=== PATIENT | female | born 2005 | race Two or more races ===

== ENCOUNTER 2024-10-28 06:53 | Day surgery (SDC) | payer OTHER, SELFPAY ==
[2024-10-26 12:53] VITALS: BMI 18.8
[2024-10-28 07:54] VITALS: BP 119/91; PULSE 80; RESP 16; TEMP 36.3; O2SAT 93
[2024-10-28] MEDS: LACTATED RINGERS 1000ML 1,000 ML 50 ML IV (08:01)
--- NOTE | 2024-10-28 08:09 | P.PNANES_ITS ---
[facility] Disclaimer: The information contained in this section may have been updated after the patient was seen, as this information can be updated by other users. 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 Travel in the last 8 weeks?: None Have you lived/traveled outside US in past 30 days?: No Contact w/someone who lives/traveled outside US past 30 days?: No Exposure to someone with infectious disease in past 14 days?: No Do you have a fever (greater than 100.4 F or 38 C)?: No Have you tested positive for COVID-19?: No Exposed to someone with COVID-19 in past 14 days?: No Do you have a sore throat?: No Do you have a cough?: No Do you have any weakness?: No Are you experiencing any nausea/vomitting?: No Do you have any diarrhea?: No Are you experiencing any unusual bleeding?: No Do you have any muscle aches/pain?: No Do you have any abdominal pain?: No Are you experiencing loss of taste or smell?: No [facility] Anesthesia Checklist Patient Identification Patient Identification: Arm Band and Family Structural Data Admitted From: Home Planned Operative Procedure/s: EGD. Consent for Planned Operative Procedure(s) Verified: Yes Verified Documents: Surgical Consent and History and Physical NPO Status Verified Time NPO: 00:00 Additional verifications Patient : No Anesthesia Reactions: No Hx Blood Transfusions: No Blood Transfusion Reaction: No Cephalosporin Allergy: No Previous Colonoscopy: No Airway Assessment Mallampati Score:: Class II C-Spine Mobility Assessed: Yes TMJ Mobility Assessed: Yes Dentition: Good Dentition Neurological Assessment Level of Consciousness: Awake, Alert, Appropriate and Follows Commands Hx Seizures: No Numbness or tingling in extremities: No Anesthesia Plan Anesthesia Risk discussed: Yes ASA Class: II Anesthesia Type: MAC Preoperative Comments Pre-Operative Comments: Transient asthma with rx albuterol. Acid reflux. Loss of appetite Nausea.
[2024-10-28 08:10] LABS: Urine Pregnancy, HCG Qual. Negative (Negative)
--- NOTE | 2024-10-28 08:46 | P.HP_ITS ---
History of Present Illness *Admission Date: 10/28/24 *Reason for visit:: Nausea/abdominal pain/loose stools *History of present illness: Mrs. Blanton who is here for diagnostic EGD due to nausea, loss of appetite, reflux, bloating and abdominal cramps. She also has urgency and diarrhea. The examination is deemed medically necessary for diagnostic EGD. The patient has been seen, interviewed and examined prior to the procedure by both myself and the anesthesia provider. [facility] Disclaimer: The information contained in this section may have been updated after the patient was seen, as this information can be updated by other users. 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 student Travel in the last 8 weeks?: None Have you lived/traveled outside US in past 30 days?: No Contact w/someone who lives/traveled outside US past 30 days?: No Exposure to someone with infectious disease in past 14 days?: No Do you have a fever (greater than 100.4 F or 38 C)?: No Have you tested positive for COVID-19?: No Exposed to someone with COVID-19 in past 14 days?: No Do you have a sore throat?: No Do you have a cough?: No Do you have any weakness?: No Are you experiencing any nausea/vomitting?: No Do you have any diarrhea?: No Are you experiencing any unusual bleeding?: No Do you have any muscle aches/pain?: No Do you have any abdominal pain?: No Are you experiencing loss of taste or smell?: No Review of Systems Review of Systems Review of systems (narrative): Negative *Cardiovascular Comments: Negative *Gastrointestinal Comments: Negative *Genitourinary Comments: Negative *Musculoskeletal Comments: Negative *Neurologic Comments: Negative Meds Home Medications and Allergies Home Medications ?Medication ?Instructions ?Recorded ?Confirmed ?Type cholecalciferol (vitamin D3) 1,250 1,250 mcg PO WEEKLY 08/03/24 10/28/24 History mcg (50,000 unit) capsule cyanocobalamin (vitamin B-12) 5,000 mcg sublingual DONTAE LY 10/26/24 10/28/24 History 5,000 mcg sublingual tablet (Vitamin B-12) New Prescriptions to Start Prescriptions: Allergies Allergy/AdvReac Type Severity Reaction Status Date / Time No Known Allergies Allergy Verified 10/28/24 07:53 Exam Data for Last 24 hours Vital signs and Labs for Last 24 Hours: Temp Pulse Resp BP Pulse Ox O2 Del Method 97.4 F L 80 16 119/91 H 93 L Room Air 10/28/24 07:54 10/28/24 07:54 10/28/24 07:54 10/28/24 07:54 10/28/24 07:54 10/28/24 07:54 Laboratory Results - last 24 hr 10/28/24 07:52: Urine HCG, Qual Negative I & O for Last 24 hours: Intake & Output 10/25/24 10/26/24 10/27/24 10/28/24 23:59 23:59 23:59 23:59 Weight 110 lb *Routine HEENT Exam Head: Present normocephalic Eye: Present EOMI and PERRL ENT: Present mucous membranes moist *Routine Neck Exam Neck: Present supple *Routine Respiratory Exam Respiratory: Present CTA bilaterally *Routine Cardiovascular Exam Cardiovascular: Present RRR *Routine Abdominal Exam Abdominal: Present soft and normoactive bowel sounds; Absent tenderness *Routine Rectal Exam Rectal:: deferred *Routine Genitalia Exam Genitalia:: deferred *Routine Extremities Exam Extremities: Absent cyanosis, clubbing or edema *Routine Skin Exam Skin: Present warm; Absent rash *Routine Neurological Exam Neurological: Present alert and oriented X3 Assessment and Plan *Assessment and plan (1) Acid reflux: Status: Acute Category: Medical Code(s): K21.9 - Gastro-esophageal reflux disease without esophagitis (2) Bloating: Status: Acute Category: Medical Code(s): R14.0 - Abdominal distension (gaseous) (3) Loss of appetite: Status: Acute Category: Medical Code(s): R63.0 - Anorexia (4) Diarrhea: Status: Acute Category: Medical Code(s): R19.7 - Diarrhea, unspecified (5) Fecal urgency: Status: Acute Category: Medical Code(s): R15.2 - Fecal urgency (6) Nausea and vomiting: Status: Acute Category: Medical Code(s): R11.2 - Nausea with vomiting, unspecified Plan A/P: 1. Nausea/vomiting with loss of appetite, reflux, bloating, cramps and diarrhea is the preprocedural diagnosis. The patient will be anesthetized/sedated using MAC sedation. The patient has been seen and examined. Cardiac and lung assessment prior to the examination is stable. Proceed with planned diagnostic EGD.
--- NOTE | 2024-10-28 09:01 | P.PCN_ITS ---
[facility] Procedure Note Date: 10/28/24 Time: 09:10 Procedure Note:: Upper Endoscopy Procedure Report: Esophagogastroduodenoscopy with cold biopsies Endoscopost: Daniel Grijalva II, MD Referring Physician: MOISES Esteban Date of Procedure: October 28, 2024 Equipment: Olympus GIF 190 standard upper endoscope Sedation: MAC sedation Indications: Mrs. Blanton is a 19-year-old female who is here for diagnostic evaluation of her nausea, vomiting, lack of appetite and weight loss. She has bloating, early satiety and some lower abdominal discomfort. She has had moderate belching. The patient also has had diarrhea. All of this began after cholecystectomy in November 2023. The patient reports no dysphagia or significant abdominal pain. Her mother has gluten intolerance but not celiac disease. She reports no prior endoscopy or colonoscopy. Procedure: Prior to the procedure, a history and physical exam was performed, and patient's medications and allergies were reviewed. The risks, benefits and alternatives of the sedation and procedure were discussed with the patient. All questions were answered and informed consent was obtained. The patient was brought to the procedure room. Patient identification and proposed procedure were verified by the physician and the nurse. The patient was placed in a left lateral decubitus position and the scope was passed under direct vision. Throughout the procedure, the patient's blood pressure, pulse, and oxygen saturations were monitored continuously. The upper GI endoscopy was accomplished without difficulty. The patient tolerated the procedure well. Findings: The scope was passed directly into the upper esophagus and advanced to the fourth portion of duodenum and proximal jejunum. A cold biopsy was taken from the proximal jejunum for disaccharidase assay. The proximal jejunum, post bulbar duodenum, ampulla and duodenal bulb were normal with normal mucosa and conniventes. Cold biopsies were taken from the first portion of duodenum and duodenal bulb for celiac disease. The scope was withdrawn through a normal duodenal bulb and pylorus into the stomach. There was bile reflux with minimal antral linear reactive gastropathy. Biopsies were taken at the incisura. Upon retroflexion there was a small 1 to 2 cm hiatal hernia/sliding hiatal hernia. The scope was then withdrawn into the esophagus. There were 2 tongues of salmon-colored mucosa that were biopsied to rule out intestinal metaplasia. There was no evidence of reflux esophagitis. The remainder of the esophageal mucosa was normal. Impression: 1. Nonerosive GERD with 2 tongues of salmon-colored mucosa?biopsies taken to rule out intestinal metaplasia/Bolanos's esophagus and very small 1 to 2 cm sliding hiatal hernia 2. Bile reflux with mild antral reactive gastropathy Plan: I will follow-up the biopsies and disaccharidase assay. I would recommend more aggressive treatment of her nausea and vomiting with metoclopramide. We will also discuss treatment for her diarrhea and I would like to obtain stool studies today as well with calprotectin, elastase, lactoferrin, Hemoccult and additional labs to include CBC, CMP, amylase, lipase etc.
[2024-10-28 09:18] VITALS: BP 100/60; PULSE 77; RESP 18; TEMP 37.1; O2SAT 99
[2024-10-28 09:28] VITALS: BP 104/69; PULSE 65; RESP 18; O2SAT 100
[2024-10-28 09:38] VITALS: BP 110/71; PULSE 64; RESP 18; O2SAT 100
[2024-10-28 09:38] LABS: Basophils # 0.1 K/mm3 (0-0.2); Basophils % 0.8 % (0.1-2.0); Eosinophils # 0.1 Kmm3 (0.0-0.4); Eosinophils % 1.7 % (0.1-12.0); Hematocrit 32.4 % (37.0-47.0); Hemoglobin 9.9 g/dL (12.2-16.2); Immature Granulocytes # 0.02 10^3uL; Immature Granulocytes % 0.3 %; Lymphocytes # 1.1 K/mm3 (0.7-4.5); Lymphocytes % 16.7 % (10-50); Mean Corpuscular HGB Conc 30.6 g/dL (31.8-35.4); Mean Corpuscular Hemoglobin 24.7 pg (27.0-31.2); Mean Corpuscular Volume 80.8 fl (81-99); Monocytes # 0.5 K/mm3 (0.1-1.0); Monocytes % 7.1 % (1.7-9.3); Neutrophils # 4.9 K/mm3 (1.8-7.8); Neutrophils % 73.4 % (37.0-80.0); Nucleated Red Blood Cells # 0 10^3/uL; Nucleated Red Blood Cells % 0 %; Platelet Count 316 K/mm3 (142-424); Red Blood Count 4.01 M/mm3 (4.20-5.40); Red Cell Distribution Width 16.9 % (11.5-17.5); White Blood Count 6.7 K/mm3 (4.5-13.0)
[2024-10-28 09:48] VITALS: BP 112/84; PULSE 68; RESP 18; TEMP 37.1; O2SAT 99
[2024-10-28 09:54] LABS: Albumin Level 3.8 g/dl (3.5-5.0); Chloride 110 mmol/L (98-107); Potassium 4.2 mmoL/L (3.5-5.1); Sodium 139 mmol/L (136-145)
[2024-10-28 09:56] LABS: Amylase 59 U/L (30-110); Blood Urea Nitrogen 10 mg/dl (7-17); Creatinine Clearance Estimated 101 mL/min (50-200); Estimated Glomerular Filt Rate 107 ml/min (>60); GFR (African American) 129 ML/MIN (>60)
[2024-10-28 09:57] LABS: Alanine Aminotransferase 10 U/L (12-78); Albumin/Globulin Ratio 1.7 (1.1-1.8); Alkaline Phosphatase 55 U/L (38-126); Anion Gap 7.2 mEq/L (5-15); Aspartate Amino Transferase 17 U/L (14-36); Bilirubin,Total 0.2 mg/dl (0.2-1.3); Calcium 8.6 mg/dl (8.4-10.2); Carbon Dioxide 26 mmol/L (22.0-30.0); Globulin 2.2 g/dL (1.3-3.2); Glucose 96 mg/dl (74-100); Iron 30 ug/dL (37-170); Lipase 221 U/L (23-300)
[2024-10-28 10:07] LABS: Total Iron Binding Capacity 408 ug/dL (265-497)
[2024-10-28 10:31] LABS: Ferritin 5.24 ng/ml (6.24-137)
[2024-11-02 16:12] LABS: Disclaimer Notes (.); Interpretation Notes (.); Lactase 15.1 (>/= 14.0); Maltase 186.25 (>/= 110.0); Palatinase 12.08 (>/= 8.5); Reference Notes (.); Sucrase 45.3 (>/= 25.0)
== END 2024-10-28 09:59 | disposition home or self-care (01) ==
PROVIDERS: PCP Nurse Practitioner Family; Visit Provider Internal Medicine Gastroenterology
PROC: 0DJ08ZZ Inspection of Upper Intestinal Tract, Via Natural or Artificial Opening Endoscopic (ICD-10-PCS; CPT 43239; principal; 2024-10-28 08:30)
DX: K21.9 Gastro-esophageal reflux disease without esophagitis (principal); K31.9 Disease of stomach and duodenum, unspecified
CPT/HCPCS: 43239; 80053; 81025; 82150; 82657; 82728; 83540; 83550; 83690; 85025; 88305; J2003; J2704; J7120

== ENCOUNTER 2024-12-06 13:46 | Day surgery (SDC) | payer OTHER, SELFPAY ==
[2024-12-03 13:44] VITALS: BMI 18.8
--- NOTE | 2024-12-06 12:13 | P.HP_ITS ---
History of Present Illness *Admission Date: 12/06/24 *Reason for visit:: Iron deficiency, nausea/vomiting, bloating, lower abdominal pain, diarrhea *History of present illness: Ms. Blanton is a 19-year-old female who is here for diagnostic colonoscopy secondary to iron deficiency anemia with lower abdominal pain, fullness, bloating and diarrhea. The examination is deemed medically necessary for diagnostic colonoscopy. The patient has been seen, interviewed and examined prior to the procedure by both myself and the anesthesia provider. [facility] Disclaimer: The information contained in this section may have been updated after the patient was seen, as this information can be updated by other users. 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: employed and student Travel in the last 8 weeks?: None Have you lived/traveled outside US in past 30 days?: No Contact w/someone who lives/traveled outside US past 30 days?: No Exposure to someone with infectious disease in past 14 days?: No Do you have a fever (greater than 100.4 F or 38 C)?: No Have you tested positive for COVID-19?: No Exposed to someone with COVID-19 in past 14 days?: No Do you have a sore throat?: No Do you have a cough?: No Do you have any weakness?: No Do you have any diarrhea?: No Are you experiencing any unusual bleeding?: No Do you have any muscle aches/pain?: No Do you have any abdominal pain?: No Are you experiencing loss of taste or smell?: No Review of Systems Review of Systems Review of systems (narrative): Negative *Cardiovascular Comments: Negative *Gastrointestinal Comments: Negative *Genitourinary Comments: Negative *Musculoskeletal Comments: Negative *Neurologic Comments: Negative Meds Home Medications and Allergies Home Medications ?Medication ?Instructions ?Recorded ?Confirmed ?Type cholecalciferol (vitamin D3) 1,250 1,250 mcg PO WEEKLY 08/03/24 12/06/24 History mcg (50,000 unit) capsule cyanocobalamin (vitamin B-12) 5,000 mcg sublingual DONTAE LY 10/26/24 12/06/24 History 5,000 mcg sublingual tablet (Vitamin B-12) metoclopramide HCl 5 mg tablet 5 mg PO DAILY #120 tabs 10/28/24 12/06/24 Rx [id number] 140 gram-sod sulfate 9 500 ml PO .COMPLEX colo nscopy #3 ea 11/23/24 12/06/24 Rx gram-NaCl 5.2gram-KCl-C oral pwdr packs (Plenvu) rifaximin 550 mg tablet (Xifaxan) 550 mg PO TID 14 day s #42 tabs 12/02/24 12/06/24 Rx New Prescriptions to Start Prescriptions: Allergies Allergy/AdvReac Type Severity Reaction Status Date / Time No Known Allergies Allergy Verified 12/06/24 14:09 Exam Data for Last 24 hours I & O for Last 24 hours: Intake & Output 12/03/24 12/04/24 12/05/24 12/06/24 23:59 23:59 23:59 23:59 Weight 110 lb *Routine HEENT Exam Head: Present normocephalic Eye: Present EOMI and PERRL ENT: Present mucous membranes moist *Routine Neck Exam Neck: Present supple *Routine Respiratory Exam Respiratory: Present CTA bilaterally *Routine Cardiovascular Exam Cardiovascular: Present RRR *Routine Abdominal Exam Abdominal: Present soft and normoactive bowel sounds; Absent tenderness *Routine Rectal Exam Rectal:: deferred *Routine Genitalia Exam Genitalia:: deferred *Routine Extremities Exam Extremities: Absent cyanosis, clubbing or edema *Routine Skin Exam Skin: Present warm; Absent rash *Routine Neurological Exam Neurological: Present alert and oriented X3 Assessment and Plan *Assessment and plan (1) Lower abdominal pain: Status: Acute Category: Medical Code(s): R10.30 - Lower abdominal pain, unspecified (2) Bloating: Status: Acute Category: Medical Code(s): R14.0 - Abdominal distension (gaseous) (3) Iron deficiency anemia: Status: Acute Category: Medical Code(s): D50.9 - Iron deficiency anemia, unspecified (4) Diarrhea: Status: Acute Category: Medical Code(s): R19.7 - Diarrhea, unspecified Plan A/P: 1. Lower abdominal pain, diarrhea, iron deficiency anemia and bloating is the preprocedural diagnosis. The patient will be anesthetized/sedated using MAC sedation. The patient has been seen and examined. Cardiac and lung assessment prior to the examination is stable. Proceed with planned diagnostic colonoscopy.
[2024-12-06 14:09] LABS: Urine Pregnancy, HCG Qual. Negative (Negative)
[2024-12-06 14:12] VITALS: BP 111/65; PULSE 94; RESP 18; TEMP 36.5; O2SAT 96
[2024-12-06] MEDS: LACTATED RINGERS 1000ML 1,000 ML 50 ML IV (14:21)
--- NOTE | 2024-12-06 14:35 | P.PNANES_ITS ---
[facility] Disclaimer: The information contained in this section may have been updated after the patient was seen, as this information can be updated by other users. 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 student Travel in the last 8 weeks?: None Have you lived/traveled outside US in past 30 days?: No Contact w/someone who lives/traveled outside US past 30 days?: No Exposure to someone with infectious disease in past 14 days?: No Do you have a fever (greater than 100.4 F or 38 C)?: No Have you tested positive for COVID-19?: No Exposed to someone with COVID-19 in past 14 days?: No Do you have a sore throat?: No Do you have a cough?: No Do you have any weakness?: No Do you have any diarrhea?: No Are you experiencing any unusual bleeding?: No Do you have any muscle aches/pain?: No Do you have any abdominal pain?: No Are you experiencing loss of taste or smell?: No [facility] Anesthesia Checklist Patient Identification Patient Identification: Arm Band and Family Structural Data Admitted From: Home Planned Operative Procedure/s: Colonoscopy Consent for Planned Operative Procedure(s) Verified: Yes Verified Documents: Surgical Consent NPO Status Verified Time NPO: 00:00 Additional verifications Patient : No Anesthesia Reactions: No Hx Blood Transfusions: No Blood Transfusion Reaction: No Cephalosporin Allergy: No Previous Colonoscopy: No Airway Assessment Mallampati Score:: Class II C-Spine Mobility Assessed: Yes TMJ Mobility Assessed: Yes Dentition: Good Dentition Neurological Assessment Level of Consciousness: Awake, Alert, Appropriate and Follows Commands Hx Seizures: No Numbness or tingling in extremities: No Anesthesia Plan Anesthesia Risk discussed: Yes ASA Class: I Anesthesia Type: MAC
--- NOTE | 2024-12-06 16:09 | P.PCN_ITS ---
[facility] Procedure Note Date: 12/06/24 Time: 16:27 Procedure Note:: Colonoscopy Procedure Report: Colonoscopy with cold biopsies Endoscopist: Daniel Grijalva II, MD Referring physician: MOISES Esteban Date of Procedure: December 06, 2024 Equipment: Olympus [id number] adult colonoscope Sedation: MAC sedation Indication: Ms. Blanton is a 19-year-old female who reports lower abdominal pain discomfort, bloating and nausea. She also has had diarrhea which all began after cholecystectomy in November 2023. Lab work has shown microcytic anemia (hemoglobin 9.9 and hematocrit 32.4) and iron levels were low with serum iron 30, iron saturation 7.35% and serum ferritin 5.24. The patient has had loss of appetite and weight loss. Her colonoscopy had shown some bile reflux with mild antral gastropathy and very small sliding hiatal hernia. Biopsies of the esophagus and stomach showed no evidence of Bolanos's esophagus or H. pylori. Colonoscopy is performed for diagnostic purposes. Procedure: Prior to the procedure, a history and physical exam was performed, and patient's medications and allergies were reviewed. The risks, benefits and alternatives of the sedation and procedure were discussed with the patient. All questions were answered and informed consent was obtained. The patient was brought to the procedure room. Patient identification and proposed procedure were verified by the physician and the nurse. The patient was placed in a left lateral decubitus position and the scope was passed under direct vision. Throughout the procedure, the patient's blood pressure, pulse, and oxygen saturations were monitored continuously. The colonoscopy was accomplished without difficulty. The patient tolerated the procedure well. Findings: On digital rectal examination there was normal rectal tone. There were no external hemorrhoids. The colonoscope was introduced through the anal canal to the rectum and advanced to the cecum. The ileocecal valve and appendiceal orifice were identified. The scope was advanced a short distance into the ileum which appeared grossly normal. The scope was then withdrawn into the colon. The cecum, ascending, transverse, descending, sigmoid and rectum were grossly normal. Cold biopsies were taken randomly from the right colon to rule out mi croscopic colitis. There were no mucosal abnormalities identified. There was some colonic redundancy/tortuosity. Upon retroflexion within the rectum there were no internal hemorrhoids. The preparation was excellent throughout with [place] Preparation Score of 9. The cecal time was 12 minutes. Impression: 1. Normal colonoscopy with intubation of the terminal ileum Plan: I do suspect that the patient is related to heavier menstruation. I will follow-up the biopsies to rule out microscopic colitis. I do feel the patient may have SIBO and/or colonic bacterial overgrowth syndrome. We will discuss treatment options including low FODMAP diet.
[2024-12-06 16:30] VITALS: BP 95/52; PULSE 86; RESP 17; TEMP 36.1; O2SAT 95
[2024-12-06 16:40] VITALS: BP 110/57; PULSE 79; RESP 17; O2SAT 97
[2024-12-06 16:50] VITALS: BP 91/68; PULSE 79; RESP 18; O2SAT 97
[2024-12-06 17:00] VITALS: BP 95/70; PULSE 78; RESP 18; O2SAT 98
== END 2024-12-06 17:05 | disposition home or self-care (01) ==
PROVIDERS: PCP Nurse Practitioner Family; Visit Provider Internal Medicine Gastroenterology
PROC: 0DJD8ZZ Inspection of Lower Intestinal Tract, Via Natural or Artificial Opening Endoscopic (ICD-10-PCS; CPT 45378; principal; 2024-12-06 15:00)
DX: R10.30 Lower abdominal pain, unspecified (principal); R14.0 Abdominal distension (gaseous); R11.0 Nausea; R19.7 Diarrhea, unspecified
CPT/HCPCS: 45380; 81025; J2003; J2704; J7120

== ENCOUNTER 2025-02-23 10:40 | Outpatient (CLI) | payer OTHER, SELFPAY ==
--- OUTSIDE RECORDS SUMMARY | 2006-12-08 | XMS_ITS | Encounter Summary ---
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 Name Role Phone Unavailable Primary Care Provider Unavailabl e Encounter Details Date Type Department Care Team (Late st Contact Info) Description 12/08/2006 Hospital Encounter [facility] Department of Radiology [address] [place] [phone] Social History Tobacco Use Types Packs/Day Years Used Date Smoking Tobacco: Never Assessed Comments Unknown Sex and Gender Information Value Date Recorded Sex Assigned at Not on file Legal Sex Female 5:20 AM EST Gender Identity Not on file Sexual Orientation Not on file documented as of this encounter Miscellaneous Notes * Consent Other - Edt, Audit [place] - 11/20/2007 6:41 AM EDT documented in this encounter Plan of Treatment Not on file documented as of this encounter Procedures Procedure Name Priority Date/Time Associated Diagnosis Comments RAD CHEST 2V Routine 12/08/2006 8:52 AM EDT documented in this encounter Results * RAD CHEST (2V) (12/08/2006 8:52 AM EDT) Anatomical Region Laterality Modality RAD CHEST/ABD/THORAX Computed Ra diography 12/08/2006 8:47 AM EDT Narrative 12/08/2006 8:52 AM EDT Final Report Clinical history of tetralogy of Fallot at . Impression lung is clear and heart now normal Interpreted By: FIORDALIZA CERVANTES M.D. Verified By: FIORDALIZA CERVANTES M.D. on 12/08/2006 09:18 via Electronic Signature The attending radiologist has reviewed the images and agrees with this report. us Briana Chavarria MD DIAGNOSTIC IMAGING ORDERABLE S Final Result documented in this encounter Visit Diagnoses Not on filedocumented in this encounter
--- OUTSIDE RECORDS SUMMARY | 2006-12-08 | XMS_ITS | Encounter Summary ---
Author Organization [facility] Address [facility] [place] [address] Care Team Providers Care Building Operator Name Role Phone Unavailable Primary Care Provider Unavailabl e Encounter Details Date Type Department Care Team (Late st Contact Info) Description 12/08/2006 Hospital Encounter [facility] Division of Anesthesiology [address] [place] [phone] Social History Tobacco Use Types Packs/Day Years Used Date Smoking Tobacco: Never Assessed Comments Unknown Sex and Gender Information Value Date Recorded Sex Assigned at Not on file Legal Sex Female 5:20 AM EST Gender Identity Not on file Sexual Orientation Not on file documented as of this encounter Plan of Treatment Not on file documented as of this encounter Visit Diagnoses Not on filedocumented in this encounter
--- OUTSIDE RECORDS SUMMARY | 2025-01-03 10:30 | XMS_ITS | Encounter Summary ---
[facility] Address [address] [place] [address] Care Team Providers Care Finisher Operator Name Role Phone Cherelle Hampton APRN Primary Care Provider Reason for Visit * Reason Comments Breast Mass Encounter Details Date Type Department Care Team (Late st Contact Info) Description 01/03/2025 10:30 AM EDT Office Visit [facility] [address] [place] [address] Cherelle Hampton APRN [address] [place] [address] Mass of lower inner quadrant of right breast (Primary Dx) Social History Tobacco Use Types Packs/Day Years Used Date Smoking Tobacco: Never Smokeless Tobacco: Never Alcohol Use Standard Drinks/Week Comments Never 0 (1 standard drink = 0.6 oz pur e alcohol) PHQ-2 Answer Date Recorded Retired PHQ-9: Brief Depression Severity Measure Score 14 04/09/2023 PHQ-2 Answer Date Recorded Patient Health Questionnaire-9 Score 14 05/28/2024 Comments No Sex and Gender Information Value Date Recorded Sex Assigned at Not on file Legal Sex Female 1:19 PM EDT Gender Identity Not on file Sexual Orientation Not on file Occupation Industry Job Start Date Job End Date Not on file Not on file Not on file Not on file documented as of this encounter Last Filed Vital Signs Vital Sign Reading Time Taken Comments Blood Pressure 92/60 01/03/2025 10:27 AM EDT Pulse 51 01/03/2025 10:27 AM EDT Temperature 36.4 C (97.5 F) 01/03/2025 10:27 AM EDT Respiratory Rate 14 01/03/2025 10:27 AM EDT Oxygen Saturation 100% 01/03/2025 10:27 AM EDT Inhaled Oxygen Concentration - - Weight 49 kg (108 lb) 01/03/2025 10:27 AM EDT Height 162.6 cm (5' 4 ) 01/03/2025 10:27 AM EDT Body Mass Index 18.54 01/03/2025 10:27 AM EDT documented in this encounter Progress Notes * Cherelle Hampton, MUCK HAULER - 01/03/2025 10:30 AM EDT Images from the original note were not included. Date: 01/03/2025 Patient Name: Megan Blanton : 2005 Chief Complaint: Chief Complaint Patient presents with Breast Mass History of Present Illness: Megan Blanton is a 19 y.o. female who is here today to follow upfor Breast Mass History of Present Illness The patient is a 19-year-old female who presents to the clinic with a breast mass of concern. She discovered a spot on her breast a few months ago. Recently, she has been experiencing stabbing pain in the area. She reports no rash, dimpling, or nipple discharge. She has never been . She admits to consuming a significant amount of caffeine. Her menstrual cycles are regular, occurringevery 28 days and lasting between 5 to 7 days. Her last menstrual period started on 12/22/2024. FAMILY HISTORY She reports no family history of breast mass, biopsies, or cancers in the breast. Review of Systems: Review of Systems Genitourinary: Positive for breast lump. I have reviewed the patients family history, social history, past medical history, past surgical history and have updated it as appropriate. Medications: No current outpatient medications on file. Allergies: No Known Allergies PHQ-9 Total Score: Physical Exam: Vital Signs: Vitals: 01/03/25 1027 BP: 92/60 Pulse: 51 Resp: 14 Temp: 97.5 ??F (36.4 ??C) SpO2: 100% Weight: 49 kg (108 lb) Height: 162.6 cm (64 ) Body mass index is 18.54 kg/m??. BMI is within normal parameters. No other follow-up for BMI required. Physical Exam Vitals and nursing note reviewed. Constitutional: Appearance: Normal appearance. HENT: Head: Normocephalic and atraumatic. Cardiovascular: Rate and Rhythm: Normal rate and regular rhythm. Pulmonary: Effort: Pulmonary effort is normal. Breath sounds: Normal breath sounds. Chest: Skin: General: Skin is warm. Neurological: Mental Status: She is alert and oriented to person, place, and time. Assessment/Plan: Diagnoses and all orders for this visit: 1. Mass of lower inner quadrant of right breast (Primary) - US Breast Bilateral Complete; Future Assessment & Plan 1. Breast mass: - The mass is tender to touch, which is generally a better sign compared to hard, non-tender masses. - An ultrasound of the breast will be ordered as an urgent request to expedite the process. The patient will be contacted with the date and time for the ultrasound. Patient or patient software sales representative verbalized consent for the use of Ambient Listening during the visit with Cherelle Hampton APRN for chart documentation. 01/03/2025 10:47 EDT Follow Up: Return if symptoms worsen or fail to improve. Cherelle Ballesteros APRN [facility] documented in this encounter Plan of Treatment Not on file documented as of this encounter Visit Diagnoses Diagnosis Mass of lower inner quadrant of right breast- Primary documented in this encounter Additional Health Concerns Assessment Noted Time PHQ-2 Depression Total Score: 3 04/09/20 23 4:00 PM EST documented as of this encounter Care Teams Finisher Operator Relationship Specialty Start Date End Date Cherelle Hampton APRN [address] [place] [address] PCP - General Nurse Practitioner 10/24/23 documented as of this encounter
--- OUTSIDE RECORDS SUMMARY | 2025-01-07 07:44 | XMS_ITS | Encounter Summary ---
[facility] Address [address] [place] [address] Care Team Providers Care Manager Health Name Role Phone Cherelle Hampton APRN Primary Care Provider Reason for Visit * Diagnostic Imaging (Emergency) - Closed Specialty Diagnoses / Procedures Referred By Leatha mccann Referred To Contact Radiology Diagnoses Mass of lower inner quadrant of right breast Procedures US Breast Right Limited US Breast Bilateral Complete Cherelle Hampton, OLYA [address] [facility] [place] [address] Phone: tel: fax: [facility] [place] [address] [place] [address] Phone: tel: Referral ID Status Reason Start Date Expiration Date Visits Re quested Visits Authorized [id number] Closed 01/03/2025 04/04/2026 1 1 Encounter Details Date Type Department Care Team (Latest Contact Info) Description 01/07/2025 7:44 AM EDT - 01/07/2025 11:59 PM EDT Hospital Encounter [facility] [place] [address] [facility] [address] [place] [address] Cherelle Hampton PEDIATRIC PHYSIATRIST [address] [place] [address] Mass of lower inner quadrant of right breast Discharge Disposition: Home or Self Care Social History Tobacco Use Types Packs/Day Years [...] Procedure Name Priority Date/Time Associated Diagnosis Comments US BREAST RIGHT LIMITED STAT 01/07/2025 8:45 AM EDT Mass of lower inner quadrant of right breast documented in this encounter Results * (ABNORMAL) US Breast Right Limited (01/07/2025 8:45 AM EDT) Anatomical Region Laterality Modality Breast Right Ultrasound 01/07/2025 8:35 AM EDT Impressions 01/07/2025 8:40 AM EDT Indeterminate lobulated mass. ACR BI-RADS CATEGORY: 4, SUSPICIOUS RECOMMENDATION: Ultrasound-guided core needle biopsy is recommended. A letter, in lay terminology, with the results of this exam was given to the patient at the time of the visit. Physician Order Ultrasound Guided Breast Biopsy Diagnosis: Abnormal Mammogram 01/07/2025 8:40 AM by Cindy Rocha MD on Narrative 01/07/2025 8:40 AM EDT DIAGNOSTIC TARGETED RIGHT BREAST ULTRASOUND CLINICAL INDICATION: Palpable lump near 5:00 on the right, patient is a 19-year-old female. TECHNIQUE: Multiple transverse and sagittal images of the right breast were obtained. COMPARISON: No prior FINDINGS: There is a 2.0 x 0.7 x 2.5 cm hypoechoic parallel macrolobulated mass with an imaging appearance that favors a fibroadenoma. Given size, ultrasound-guided core needle biopsy is recommended to establish a benign histology. us Cherelle Hampton APRN IMG US ORDERABLES Final Resu lt documented in this encounter Visit Diagnoses Diagnosis Mass of lower inner quadrant of right breast documented in this encounter Additional Health Concerns Assessment Noted Time PHQ-2 Depression Total Score: 3 04/09/20 23 4:00 PM EST documented as of this encounter Care Teams Manager Health Relationship Specialty Start Date End Date Cherelle Hampton, PEDIATRIC PHYSIATRIST [facility] [address] [place], [place] [id number] PCP - General Nurse Practitioner 10/24/23 documented as of this encounter
--- OUTSIDE RECORDS SUMMARY | 2025-01-28 12:55 | XMS_ITS | Encounter Summary ---
[facility] Address [address] [place] [address] Care Team Providers Care Scale Installer Name Role Phone Cherelle Hampton APRN Primary Care Provider [phone] Reason for Visit * Diagnostic Imaging (Routine) - Closed Specialty Diagnoses / Procedures Referred By Leatha mccann Referred To Contact Radiology Diagnoses Abnormal mammogram Procedures US Guided Breast Biopsy With & Without Device initial US Guided Breast Biopsy With & Without Device initial Cherelle Hampton APRN [address] [place] [address] Phone: tel: fax: [address] [address] Phone: tel: Referral ID Status Reason Start Date Expiration Date Visits Re quested Visits Authorized [id number] Closed 01/07/2025 04/08/2026 1 1 Encounter Details Date Type Department Care Team (Latest Contact Info) Description 01/28/2025 12:55 PM EDT - 01/28/2025 11:59 PM EDT Hospital Encounter [facility] [place] [address] [place] [address] [place] [address] Cherelle Hampton APRN [address] [facility] [place] [address] Abnormal mammogram Discharge Disposition: Home or Self Care Social [...] on file documented as of this encounter Progress Notes * Toña Arvizu RN MSN - 01/28/2025 1:00 PM EDT Alert and oriented. Denies discomfort, no active bleeding, steri-strips not visualized, gauze dressing intact. Cold pack applied to breast over bandage. Questions answered, support given. Verbalizes and demonstrates understanding of post-care instructions, written copy given. documented in this encounter Plan of Treatment Not on file documented as of this encounter Procedures Procedure Name Priority Date/Time Associated Diagnosis Comments US GUIDED BREAST BIOPSY W WO DEVICE INITIAL Routine 01/28/2025 1:52 PM EDT Abnormal mammogram TISSUE PATHOLOGY EXAM Routine 01/28/2025 1:52 PM EDT documented in this encounter Results * Tissue Pathology Exam (01/28/2025 1:52 PM EDT) Case Report Surgical Pathology Report Case: [id number] Authorizing Provider: Cindy Rocha MD Collected: 01/28/2025 01:52 PM Ordering Location: Received: 01/31/2025 06:15 AM [facility] [place] Pathologist: Minesh Navarro MD Specimen: Breast, Right, RIGHT BREAST 4:00 02/01/2025 2:55 PM EDT LABORATORY Clinical Information Abnormal mammogram right breast 4:00 02/01/2025 2:55 PM EDT LABORATORY Final Diagnosis RIGHT BREAST, 4:00, BIOPSIES: Fibroadenoma Negative for atypia or malignancy GJK 02/01/2025 2:55 PM EDT LABORATORY at 1455 EDT Comment This report was sent to the radiologist at [facility] on 02/01/25. 02/01/2025 2:55 PM EDT LABORATORY Gross Description 1. Breast, Right. Received in formalin labeled right breast 4:00 ultrasound biopsy is a 0.8 x 0.8 x 0.2 cm aggregate of yellow-pink fibrofatty breast tissue fragments placed in formalin at 1352 on 01/28/2025, now submitted in block 1A. The cold ischemic time is less than 60 minutes, total time in formalin is greater than 6 and less than 72 hours. HDM 02/01/2025 2:55 PM EDT LABORATORY Microscopic Description The slides are reviewed and demonstrate histopathologic features supporting the above rendered diagnosis. 02/01/2025 2:55 PM EDT LABORATORY Tissue Right breast structure / Unknown Collection / Unknown 01/28/2025 1:52 PM EDT 01/31/2025 6:15 AM EDT Comment:RIGHT BREAST 4:00 us Cindy Rocha MD PATHOLOGY/CYTOLOGY ORDERABLES Fi nal Result LABORATORY
[address] [place] [address], * US Guided Breast Biopsy With & Without Device initial (01/28/2025 1:52 PM EDT) Anatomical Region Laterality Modality Breast N/A Ultrasound Tissue 01/28/2025 4:42 PM EDT Narrative 02/01/2025 7:19 PM EDT 14G [place]-LOADED ULTRASOUND GUIDED CORE BIOPSY HISTORY: Palpable lump at 5:00 on the right which corresponds to a parallel oval hypoechoic mass. PROCEDURE: Written and verbal consent was obtained for ultrasound guided core biopsy of a 2.5 cm right breast mass located 4:00 4 cm from the nipple. Time out was observed to verify the patient's identity and correct location of the breast abnormality. The presence of the lesion was confirmed ultrasound and a lateral approach was chosen. The breast was prepped and draped in the usual sterile fashion and 1% lidocaine with and without epinephrine was utilized for local anesthesia. A small skin incision was made with a scalpel and a 14-gauge needle was introduced into the breast under direct sonographic guidance. The needle was placed adjacent to the mass. A total of 3 core samples were obtained. The specimens were placed in formalin and forwarded to the pathology department. A post biopsy marking clip was placed. Post procedure mammogram was not performed given the patient's age and that the clip was well seen following the procedure. Upon completion of the procedure, compression was applied to the biopsy site until all appreciable bleeding subsided and a sterile dressing was applied. Post biopsy instructions were reviewed with the patient by our clinical breast imaging staff. A written copy of these instructions was also given to the patient. The patient tolerated the procedure well and no immediate complications occurred. SUMMARY: 14-gauge ultrasound guided core biopsy of a 2.5 cm right breast mass located at 4:00. A post biopsy marking clip was placed. Pathology demonstrated fibroadenoma, negative for atypia or malignancy. This is considered concordant with the imaging findings. A 6-month short-term interval targeted ultrasound follow-up is recommended. If the lesion is painful or bothersome, surgical excision can be considered. Further, if the finding were to enlarge, surgical excision would be recommended. Results and recommendations will be communicated to the patient by our breast care nurse. 02/01/2025 7:19 PM by Cindy Rocha MD on Cherelle Hampton APRN [facility] US ORDERABLES Final Resu lt documented in this encounter Visit Diagnoses Diagnosis Abnormal mammogram Abnormal mammogram, unspecified documented in this encounter Administered Medications Inactive Administered Medications - up to 3 most recent administrations Medication Order MAR Action Action Date Dose Rate Site lidocaine (XYLOCAINE) 1 % injection 5 mL 5 mL, Injection, Once, On Fri01/28/25 at 1400, For 1 dose Given 01/28/2025 2:01 PM EDT 1 mL lidocaine 1% - EPINEPHrine 1:270212 (XYLOCAINE W/EPI) 1 %-1:577972 injection 10 mL 10 mL, Injection, Once, On Fri01/28/25 at 1400, For 1 dose Given 01/28/2025 2:02 PM EDT 1 mL documented in this encounter Additional Health Concerns Assessment Noted Time PHQ-2 Depression Total Score: 3 04/09/20 23 4:00 PM EST documented as of this encounter Care Teams Scale Installer Relationship Specialty Start Date End Date Cherelle Hampton APRN [address] [place] [address] PCP - General Nurse Practitioner 10/24/23 documented as of this encounter
--- OUTSIDE RECORDS SUMMARY | 2025-02-23 10:44 | XMS_ITS | Encounter Summary ---
[facility] Address [address] [place] [address] Care Team Providers Care Green Chain Puller Name Role Phone Cherelle Hampton APRN Primary Care Provider Encounter Details Date Type Department Care Team (Late st Contact Info) Description 01/10/2025 Results Follow-Up [facility] [address] [place] [address] Cherelle Hampton APRN [address] [place] [address] Social History Tobacco Use Types Packs/Day Years [...] Diagnoses Not on filedocumented in this encounter Additional Health Concerns Assessment Noted Time PHQ-2 Depression Total Score: 3 04/09/20 23 4:00 PM EST documented as of this encounter Care Teams Green Chain Puller Relationship Specialty Start Date End Date Cherelle Hampton, TEAMCENTER CONSULTANT [address] [place] [address] PCP - General Nurse Practitioner 10/24/23 documented as of this encounter
--- OUTSIDE RECORDS SUMMARY | 2025-02-23 10:44 | XMS_ITS | Encounter Summary ---
[facility] Address [address] [place] [address] Care Team Providers Care Deputy Sheriff/Investigator Name Role Phone Cherelle Hampton APRN Primary Care Provider Encounter Details Date Type Department Care Team (Latest Contact Info) Description 01/03/2025 Travel Social History Tobacco Use Types Packs/Day Years [...] documented as of this encounter Care Teams Deputy Sheriff/Investigator Relationship Specialty Start Date End Date Cherelle Hampton APRN [address] [place] [address] PCP - General Nurse Practitioner 10/24/23 documented as of this encounter
--- OUTSIDE RECORDS SUMMARY | 2025-02-23 10:44 | XMS_ITS | Encounter Summary ---
[facility] Address [address] [place] [address] Care Team Providers Care Nuclear Process Engineer Name Role Phone MemoOtoniel magallonronnie Calderon APRN Primary Care Provider Encounter Details Date Type Department Care Team (Late st Contact Info) Description 02/02/2025 Telephone [facility] [address] [facility] [address] [facility] [address] [place] [address] Toña Arvizu, RN MSN Social History Tobacco Use Types Packs/Day Years [...] as of this encounter Miscellaneous Notes * Telephone Encounter - Toña Arvizu, RN MSN - 02/02/2025 9:21 AM EDT Patient notified of pathology results and recommendation. Verbalizes understanding. Denies discomfort. Denies signs and symptoms of infection. Questions answered, support given, verbalized understanding. Patient transferred to BIS scheduling per request to schedule recommended follow-up. documented in this encounter Plan of Treatment Not on file documented as of this encounter Visit Diagnoses Not on filedocumented in this encounter Additional Health Concerns Assessment Noted Time PHQ-2 Depression Total Score: 3 04/09/20 23 4:00 PM EST documented as of this encounter Care Teams Nuclear Process Engineer Relationship Specialty Start Date End Date Cherelle Hampton, SOFTWARE DEVELOPER MANAGER [address] [place] [address] PCP - General Nurse Practitioner 10/24/23 documented as of this encounter
--- OUTSIDE RECORDS SUMMARY | 2025-02-23 10:44 | XMS_ITS | Encounter Summary ---
[facility] Address [address] [place] [address] Care Team Providers Care Tire Spotter Name Role Phone Gwendolyn Hampton APRN Primary Care Provider [phone] Reason for Referral * Consultation (Routine) - Authorized Specialty Diagnoses / Procedures Referred By Leatha mccann Referred To Contact Gastroenterology Diagnoses Irritable bowel syndrome with diarrhea Procedures NM OFFICE/OUTPATIENT NEW MODERATE MDM 45 MINUTES Gwendolyn Hampton APRN [address] [place] [address] Phone: tel: fax: Daniel Grijalva MD [address] [facility] [address] [place] [address] Phone: tel: fax: Referral ID Status Reason Start Date Expiration Date Visits Requested Visits Authorized [id number] Authorized Specialty Services Required 11/30/2024 03/01/2026 1 1 Encounter Details Date Type Department Care Team (Late Contact Info) Description 11/30/2024 Telephone [facility] [address] [place] [address] Gwendolyn Hampton APRN [address] [place] [address] Social History Tobacco Use Types [...] encounter Miscellaneous Notes * Telephone Encounter - Gwendolyn Hampton APRN - 11/30/2024 12:10 PM EDT THERE IS NO ORDER FOR DIAGNOSTIC COLONOSCOPY, SO I JUST PLACED AND ORDER FOR GI REFERRAL * Telephone Encounter - Shelly Hutchison RegSched Rep - 11/30/2024 11:46 AM EDT GWENDOLYN BLEVINS ARE NEEDING YOU TO PLACE A NEW ORDER FOR DIAGNOSTIC COLONOSCOPY * Telephone Encounter - Liliana Crowley RegSched Rep - 11/30/2024 11:12 AM EDT [facility] Relationship: Other Best call back number: [phone] What is the provider, practice or medical service name[facility] Any additional details: DAQUAN FROM STATES THAT SHE RECEIVED A FAX BUT IT WASN'T WHAT ISNEEDED. DAQUAN STATES THAT THEY ARE NEEDING A REFERRAL THAT STATES THE PATIENT NEEDS THE PROCEDURE,BECAUSE OF . THE CODE IBSD K58.0 documented in this encounter Plan of Treatment Scheduled Referrals Name Type Priority Associated Diagnoses Order Schedule Ambulatory Referral to Gastroenterology Outpatient Referral Routine Irritable bowel syndrome with diarrhea Ordered: 11/30/2024 documented as of this encounter Visit Diagnoses Diagnosis Irritable bowel syndrome with diarrhea- Primary Irritable bowel syndrome documented in this encounter Additional Health Concerns Assessment Noted Time PHQ-2 Depression Total Score: 3 04/09/20 23 4:00 PM EST documented as of this encounter Care Teams Tire Spotter Relationship Specialty Start Date End Date Gwendolyn Hampton APRN [address] [place] [address] PCP - General Nurse Practitioner 10/24/23 documented as of this encounter
--- OUTSIDE RECORDS SUMMARY | 2025-02-23 10:44 | XMS_ITS | Encounter Summary ---
[facility] Address [address] [place] [address] Care Team Providers Care Breastfeeding Educator Name Role Phone Cherelle Hampton APRN Primary Care Provider Encounter Details Date Type Department Care Team (Latest Contact Info) Description 01/07/2025 Travel Social History Tobacco Use Types Packs/Day [...] documented as of this encounter Care Teams Breastfeeding Educator Relationship Specialty Start Date End Date Cherelle Hampton APRN [address] [place] [address] PCP - General Nurse Practitioner 10/24/23 documented as of this encounter
--- OUTSIDE RECORDS SUMMARY | 2025-02-23 10:45 | XMS_ITS | Clinical Summary ---
Author Organization [facility] Address [address] [place] [address] Care Team Providers Care Web Applications Programmer Name Role Phone Memo Cherelle Calderon APRN Primary Care Provider Allergies No known active allergies Medications * This document contains information received from the source organization and may not represent a complete record from that organization. Hospital, Clinic, or Other Facility Administered Medication Ordered Dose Route Frequency Start Date End Date Status lidocaine (XYLOCAINE) 1 % injection 5 mL 5 mL IJ Once 01/28/2025 01/28/2025 Ended lidocaine 1% - EPINEPHrine 1:408655 (XYLOCAINE W/EPI) 1 %-1:269349 injection 10 mL 10 mL IJ Once 01/28/2025 01/28/2025 Ended Active Problems Problem Noted Date Diagnosed Date Abnormal uterine bleeding (AUB) 06/17/2024 Overview (06/17/2024): AUB x 1 episode, on aygestin with decrease in flow but persistent bleeding. U/S- endometrium- 3.5 mm, bilateral ovaries multi follicular with no dominant cyst. We discussed suspicion for PCOS but she does not meet criteria for diagnosis since menses are historically regular. Discussed contraception to control menses if this persists, however, she is not really interested in that. Discussed that we could do it short term (3-6 mos) if aygestin doesn't stop bleeding. Annual physical exam 06/06/2024 Assessment & Plan (06/06/2024 8:16 PM EST): Health maintenance: Continue routine health maintenance including routine dentistry, eye exam, safety seatbelt use, exercise, and proper nutrition. Exercise 3-4 times a week, 30-45 mins a day Increase water intake Monitor for acute illnesses Vitamin D deficiency 07/23/2023 Chronic fatigue 07/23/2023 Anxiety 07/23/2023 Insomnia due to other mental disorder 04/23/2023 Post traumatic stress disorder (PTSD) 02/18/2023 Nightmares associated with c hronic post-traumatic stress disorder 02/18/2023 History of repair of TEF 01/10/2023 Adjustment disorder with mixed anxiety and depre ssed mood 01/10/2023 Assessment & Plan (06/06/2024 8:16 PM EST): Psychological condition is worsening. Continue current treatment regimen. Psychological condition will be reassessed in 3 months. Resolved Problems Problem Noted Date Diagnosed Date Resolved Date Abnormal uterine bleeding (AUB) 06/11/2024 06/11/2024 Encounters Date Type Department Care Team Description 02/02/2025 Telephone [facility] [place] [address] [facility] [address] [place] [address] Toña Arvizu RN MSN 01/28/2025 12:55 PM EDT - 01/28/2025 11:59 PM EDT Hospital Encounter [facility] [place] [address] [facility] [address] [place] [address] Cherelle Hampton, OLYA Abnormal mammogram Discharge Disposition: Home or Self Care 01/28/2025 Travel 01/10/2025 Results Follow-Up [facility] [address] [address] Cherelle Hampton APRN 01/07/2025 7:44 AM EDT - 01/07/2025 11:59 PM EDT Hospital Encounter [facility] [place] [address] [facility] [address] [place] [address] Cherelle Hampton, OLYA Mass of lower inner quadrant of right breast Discharge Disposition: Home or Self Care 01/07/2025 Travel 01/03/2025 10:30 AM EDT Office Visit [facility] [address] [facility] [address] [address] [place] [address] Cherelle Hampton, PROPERTY ACCOUNTANT Mass of lower inner quadrant of right breast (Primary Dx) 01/03/2025 Travel 12/16/2024 Results Follow-Up [facility] [address] [place] [address] Isela Sloan MA 12/14/2024 1:24 PM EDT - 12/14/2024 2:20 PM EDT Hospital Encounter [facility] [address] [place] [address] [place] Shannon MD Acute UTI (Primary Dx); Nausea Discharge Disposition: Home or Self Care 12/14/2024 Travel 11/30/2024 Telephone [facility] [address] [facility] [address] [place] [address] Cherelle Hampton, OLYA from Last 3 Months Immunizations Immunization Administration Dates Next Due Fluzone (or Fluarix & Flulaval for VFC) >6mos Family History Medical History Relation Name Comments Hypertension Father Anxiety disorder Mother Relation Name Status Comments Father Alive Mother Alive Social History Tobacco Use Types Packs/Day Years Used Date Smoking Tobacco: Never Smokeless Tobacco: Never Tobacco Cessation:Counseling Given: Not Answered Alcohol Use Standard Drinks/Week Comments Never 0 [...] file Not on file Not on file Last Filed Vital Signs Vital Sign Reading [...] Mass Index 18.54 01/03/2025 10:27 AM EDT Plan of Treatment Health Maintenance Due Date Last Done Comments HPV VACCINES (1 - 3-dose series) 10/11/2019 MENINGOCOCCAL B VACCINE (1 of 2 - Standard) 2020 TDAP/TD VACCINES (1 - Tdap) 10/11/2023 INFLUENZA VACCINE 12/10/2024 02/25/2023 ANNUAL PHYSICAL 05/28/2025 05/28/2024 CHLAMYDIA SCREENING 06/11/2025 06/11/2024, 05/28/2024, 06/05/2023, Additional history exists HEPATITIS C SCREENING Completed 03/11/2023, 023 MENINGOCOCCAL VACCINE Aged Out No deng jose maria eligible based on patient's age to complete this topic Pneumococcal Vaccine 0-49 Aged Out No longer eligible based on patient's age to complete this topic Procedures Procedure Name Priority Date/Time Associated Diagnosis Comments TISSUE PATHOLOGY EXAM Routine 01/28/2025 1:52 PM EDT US GUIDED BREAST BIOPSY W WO DEVICE INITIAL Routine 01/28/2025 1:52 PM EDT Abnormal mammogram US BREAST RIGHT LIMITED STAT 01/07/2025 8:45 AM EDT Mass of lower inner quadrant of right breast URINE CULTURE STAT 12/14/2024 2:19 PM EDT Acute UTI POCT URINALYSIS DIPSTICK, MULTIPRO STAT 12/14/2024 1:40 PM EDT Acute UTI VAGINITIS PLUS (VG+) WITH LYNNETTE (SIX SPECIES), NUSWAB Routine 06/11/2024 11:15 AM EST Dysuria Pelvic pain Vaginal discharge HEPATITIS PANEL, ACUTE Routine 03/11/2023 3:26 PM EDT Possible exposure to STD from Last 3 Months or Most Recently Relevant to Health Maintenance Results * US Guided Breast Biopsy With & [...] 7:19 PM by Cindy Rocha MD on us Cherelle Hampton PROPERTY ACCOUNTANT IMG US ORDERABLES Final Resu lt * Tissue Pathology Exam (01/28/2025 1:52 PM EDT) Case Report Surgical Pathology Report Case: [id number] Authorizing Provider: Cindy Rocha MD Collected: 01/28/2025 01:52 PM Ordering Location: [facility] Received: 01/31/2025 06:15 AM [facility] [place] Pathologist: Minesh Navarro MD Specimen: Breast, Right, RIGHT BREAST 4:00 02/01/2025 2:55 PM EDT [facility] Clinical Information Abnormal mammogram right breast 4:00 02/01/2025 2:55 PM EDT [facility] Final Diagnosis RIGHT BREAST, 4:00, BIOPSIES: Fibroadenoma Negative for atypia or malignancy GJK 02/01/2025 2:55 PM EDT [facility] at 1455 EDT Comment This report was sent to the radiologist at [facility] on 02/01/25. 02/01/2025 2:55 PM EDT [facility] Gross Description 1. Breast, Right. Received [...] 72 hours. HDM 02/01/2025 2:55 PM EDT [facility] Microscopic Description The slides are reviewed and demonstrate histopathologic features supporting the above rendered diagnosis. 02/01/2025 2:55 PM EDT [facility] Tissue Right breast structure / Unknown Collection / Unknown 01/28/2025 1:52 PM EDT 01/31/2025 6:15 AM EDT Comment:RIGHT BREAST 4:00 us Cindy Rocha MD PATHOLOGY/CYTOLOGY ORDERABLES Fi nal Result [facility]
[address] [place] [address], * (ABNORMAL) US Breast Right Limited (01/07/2025 [...] is recommended to establish a benign histology. Cherelle Hampton PROPERTY ACCOUNTANT G US ORDERABLES Final Resu lt * (ABNORMAL) Urine Culture - Urine, Urine, Clean Catch (12/14/2024 2:19 PM EDT) Urine Culture <10,000 CFU/mL Gram Negative Bacilli(A) ROSALIO 12/16/2024 10:32 AM EDT [facility] Urine Urine specimen obtained by clean catch procedure / Unknown Collection / Unknown 12/14/2024 2:19 PM EDT 12/14/2024 2:20 PM EDT [facility] - 12/16/2024 10:32 AM EDT Call if further workup needed. Colonization of the urinary tract without infection is common. Treatment is discouraged unless the patient is symptomatic, , or undergoing an invasive urologic procedure. [place] Shannon MD MICROBIOLOGY - GENERAL ORDERABLE S Final Result [facility]
[address] [place] [address], * (ABNORMAL) POC Urinalysis Dipstick, Multipro (Automated Dipstick) (12/14/2024 1:40 PM EDT) Color Yellow [facility] Clarity, UA Slightly Cloudy(A) [facility] Glucose, UA Negative mg/dL [facility] Bilirubin Negative [facility] Ketones, UA Negative [facility] Specific [place] 1.025 1.005 - 1.030 [facility] Blood, UA 2+(A) [facility] pH, Urine 6.0 5.0 - 8.0 [facility] Protein, POC 1+(A) mg/dL [facility] Urobilinogen, UA 0.2 E.U./dL [facility] Nitrite, UA Negative [facility] Leukocytes Large (3+)(A) [facility] Urine 12/14/2024 1:40 PM EDT us [place] Shannon MD POINT OF CARE TEST ORDERABLES Fi nal Result [facility]
[address] [place] [address], * (ABNORMAL) NuSwab VG+, Lynnette 6sp (06/11/2024 11:15 AM EST) Atopobium Vaginae Low - 0 Score [facility] BVAB 2 Low - 0 Score [facility] Megasphaera 1 Low - 0 Score [facility] Comment: Calculate total score by adding the 3 individual bacterial vaginosis (BV) marker scores together. Total score is interpreted as follows: Total score 0-1: Indicates the absence of BV. Total score 2: Indeterminate for BV. Additional clinical data should be evaluated to establish a diagnosis. Total score 3-6: Indicates the presence of BV. Lynnette Albicans, CAMILLE Positive(A) Negative [facility] Lynnette Glabrata, CAMILLE Negative Negative [facility] C PARAPSILOSIS/TROP ICALIS Negative Negative [facility] Comment:This assay does not differentiate C. tropicalis and C. parapsilosis. Lynnette lusitaniae, CAMILLE Negative Negative [facility] Lynnette krusei, CAMILLE Negative Negative [facility] Trichomonas vaginosis Negative Negative [facility] Chlamydia trachomatis, CAMILLE Negative Negative [facility] Neisseria gonorrhoeae, CAMILLE Negative Negative [facility] Swab Cervix uteri structure / Unknown 06/11/2024 11:15 AM EST 06/11/2024 Narrative [facility] ([facility]) - 06/14/2024 7:07 PM EST Test(s) 359341- Atopobium vaginae; 300697- BVAB 2; 731131- Megasphaera 1 was developed and its performance characteristics determined by [facility]. It has not been cleared or approved by the Food and Drug Administration. Test(s) 992025-Xkxenvd albicans, CAMILLE; 300595-Hamwdrn glabrata, CAMILLE; 723512-R parapsilosis/tropicalis; 842971-Rjhsngm lusitaniae, CAMILLE; 954181-Vtmxnsh krusei, CAMILLE was developed and its performance characteristics determined by [facility]. It has not been cleared or approved by the Food and Drug Administration. Performed at: [address] [place], [place] [address] [id number] Hamper Maker: Sushma Alaniz MD, Phone: [phone] Diana Clay PROPERTY ACCOUNTANT PATHOLOGY/CYTOLOGY ORDERA BLES Final Result Performing Organization Address [facility]/ZIP Co de Phone Number [facility] (AMBULATORY) [address] [place] [address], [facility] [address] [place] [address], * Hepatitis panel, acute (03/11/2023 3:26 PM EDT) Hep A IgM Negative Negative [facility] Hepatitis B Surface Ag Negative Negative [facility] Hep B Core IgM Negative Negative [facility] Hepatitis C Ab Non Reactive Non Reactive [facility] Blood 03/11/2023 3:26 PM EDT 03/11/2023 Narrative [facility] (AMBULATORY) - 03/12/2023 8:16 AM EDT Performed at: [address] [place] [address] [place] [id number] Hamper Maker: Sanjeev Ledesma PhD, Phone: [phone] Patient Fasting: N Laura Herzog PROPERTY ACCOUNTANT LAB BLOOD ORDERABLES Final R esult Performing Organization Address [facility] Co de Phone Number [facility] [address] [place] [address], [facility] [address] [place] [address], from Last 3 Months or Most Recently Relevant to Health Maintenance [place] [address] [address] [employer] Care Teams Web Applications Programmer Relationship Specialty Start Date End Date Cherelle Hampton APRN [address] [place] [address] PCP - General Nurse Practitioner 10/24/23
--- OUTSIDE RECORDS SUMMARY | 2025-02-23 10:45 | XMS_ITS | Clinical Summary ---
Author Organization [facility] Address [address] [place] [address] Care Team Providers Care Communications Associate Name Role Phone Pcp, No Primary Care Provider Unavailabl e Allergies No known active allergies Medications Pediatric Multivitamins-Ir on (CHILDRENS MULTIVITAMIN/IRO N PO) Take 1 tablet by mouth every other day. Active spironolactone (Aldactone) 100 MG tablet Take 1 tablet (100 mg) by mouth every night. 4 Active QUEtiapine (SEROquel) 25 MG tablet Take 0.5 tablets (12.5 mg) by mouth every night. 4 Active prazosin (Minipress) 1 MG capsule 3 Active traZODone (Desyrel) 50 MG tablet TAKE 1/2 TO 2 TABLETS BY MOUTH EVERY NIGHT 3 Active tretinoin (Retin-A) 0.1 % cream APPLY PEA SIZE AMOUNT TO MOISTURIZED FACE NIGHTLY AT BEDTIME 3 Active tretinoin (Retin-A) 0.025 % cream Apply topically every night. 4 Active escitalopram (Lexapro) 10 MG tablet Take 1 tablet (10 mg) by mouth 1 (one) time each day. 3 Active busPIRone (Buspar) 10 MG tablet Take 1 tablet (10 mg) by mouth 2 (two) times a day. 4 Active lamoTRIgine (LaMICtal) 150 MG tablet Take 1 tablet (150 mg) by mouth every night. 3 Active albuterol 108 (90 Base) MCG/ACT inhaler Inhale 2 puffs if needed for wheezing. Active oxyCODONE (Roxicodone) 5 MG immediate release tablet Take 1 tablet (5 mg) by mouth every 6 (six) hours if needed for severe pain. 7 tablet 4 Active Additional Information Patient not taking.Reported on 01/21/2024 cholestyramine (Questran) 4 g packetIndication s:Diarrhea, unspecified type Take 9 grams of powder (4,000 mg) by mouth 3 (three) times a day. 90 each 2 4 Active methocarbamol (Robaxin) 750 MG tablet Take 2 tablets by mouth 3 times a day as needed for muscle spasms for up to 4 days. 24 tablet 5 Active lidocaine (Lidoderm) 5 % patch Apply 1 patch topically daily over 12 hours. Remove & discard patch within 12 hours or as directed by MD. 5 patch 5 Active ibuprofen 800 MG tablet Take 1 tablet by mouth every 8 hours as needed (pain) for up to 28 doses. 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 11/26/2023 Calculus of gallbladder with out cholecystitis without obstruction 11/12/2023 Family History Medical History Relation Name Comments Diabetes type II Paternal Grandfather Diabetes type II Paternal Grandmother Relation Name Status Comments Paternal Grandfather Paternal Grandmother Social History Tobacco Use Types Packs/Day Years Used Date Smoking Tobacco: Never Passive Smoke Exposure: Never Smokeless Tobacco: Never Alcohol Use Standard Drinks/Week Comments Never 0 (1 standard drink = 0.6 oz pur e alcohol) Comments Unknown Sex and Gender Information Value Date Recorded Sex Assigned at Not on file Legal Sex Female 8:46 PM EDT Gender Identity Not on file Sexual Orientation Not on file Last Filed Vital Signs Vital Sign Reading Time Taken Comments Blood Pressure 114/68 09/06/2024 11:35 AM EDT Pulse 84 09/06/2024 11:35 AM EDT Temperature 36.4 C (97.6 F) 09/06/2024 11:35 AM EDT Respiratory Rate 18 09/06/2024 11:35 AM EDT Oxygen Saturation 99% 09/06/2024 11:35 AM EDT Inhaled Oxygen Concentration - - Weight 49.9 kg (110 lb) 09/06/2024 9:36 AM EDT Height 162.6 cm (5' 4 ) 09/06/2024 9:36 AM EDT Body Mass Index 18.88 09/06/2024 9:36 AM EDT Plan of Treatment Health Maintenance Due Date Last Done Comments [facility]-Depression Screening 2004 [facility]-/Child/Adol SDOH Screenings 2004 [facility]-Varicella Vaccines (1 of 2 - 13+ 2-dose series) 2017 HPV Vaccines (1 - 3-dose series) 10/11/2019 [facility]- SDOH Screenings 2022 [facility]-Adult SDOH Screenings 2022 [facility]-DTaP,Tdap,and Td Vaccines (1 - Tdap) 10/11/2023 [facility]-Hepatitis B Vaccines (1 of 3 - 19+ 3-dose series) 10/11/2023 [id number] Vaccine (2 - season) 2025 11/18/2022 [facility]-Influenza Vaccine (#1) 01/10/202502/25, 02/27/2016, 05/19/2012 [facility]-Zoster Vaccines (1 of 2) 2054 [facility]-Hepatitis C Screening Completed 01/17/2023 [facility]-HIV Screening Completed 08/20/2024 [facility]-HIB Vaccines Aged Out No longer e ligible based on patient's age to complete this topic [facility]-Hepatitis A Vaccines Aged Out No longer eligible based on patient's age to complete this topic [facility]-IPV Vaccines Aged Out No longer e ligible based on patient's age to complete this topic [facility]-Pneumococcal Vaccine: Pediatrics (0 to 5 Years) and At-Risk Patients (6 to 49 Years) Aged Out No longer eligible b ased on patient's age to complete this topic [facility]-Rotavirus Vaccines Aged Out No lo nger eligible based on patient's age to complete this topic Procedures Procedure Name Priority Date/Time Associated Diagnosis Comments ED HIV 1/2 ANTIBODY/ANTIGEN SCREEN WITH REFLEX TO HIV I/II DIFFERENTIATION STAT 08/20/2024 1:40 AM EDT from Last 3 Months or Most Recently Relevant to Health Maintenance Results * ED HIV 1/2 Antibody/Antigen Screen w/Reflex to HIV 1/2 Differentiation (08/20/2024 1:40 AM EDT) HIV 1 & 2 Antibody/Antigen Screen Non Reactive Non Reactive 08/20/2024 2:36 AM EDT [facility] Comment:Screening for HIV 1 & 2 antibodies, and P24 antigen is NONREACTIVE. No confirmatory testing is required. Blood Venous blood specimen / Unknown Venipuncture / Unknown 08/20/2024 1:40 AM EDT 08/20/2024 1:54 AM EDT us Sohan Miguel MD LAB BLOOD ORDERABLES Final Re sult [facility] [address] [place] [address] from Last 3 Months or Most Recently Relevant to Health Maintenance Insurance [facility] [employer] Care Teams Communications Associate Relationship Specialty Start Date End Date Pcp, Shikha [address] [place] [address] PCP - General Family Medicine 11/12/23
--- OUTSIDE RECORDS SUMMARY | 2025-02-23 10:45 | XMS_ITS | Clinical Summary ---
Author Organization [facility] Address [facility] [place] [address] Care Team Providers Care Rouge Sifter And Miller Name Role Phone None, Physician Primary Care Provider Unavailabl e Allergies No known active allergies Medications cetirizine (ZYRTEC) 10 MG tablet Take 10 mg by mouth daily. Active fluticasone (FLOVENT HFA) 110 MCG/ACT inhaler Inhale 1 puff into the lungs. 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 Dysphagia 05/30/2011 Lynnette esophagitis 10/21/2007 GERD (gastroesophageal reflux disease) 8 Status post Jordan fundoplic ation (with gastrostomy tube placement) 10/16/2007 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 Overview (04/01/2024): S/p repair 10/14 Social History Tobacco Use Types Packs/Day Years Used Date Smoking Tobacco: Never Smokeless Tobacco: Never Tobacco Cessation:Counseling Given: Not Answered Comments No Sex and Gender Information Value Date Recorded Sex Assigned at Not on file Legal Sex Female 4:35 PM EST Gender Identity Not on file Sexual Orientation Not on file Last Filed Vital Signs Vital Sign Reading Time Taken Comments Blood Pressure 112/67 04/01/2024 12:09 PM EST Pulse 109 04/01/2024 12:09 PM EST Temperature 36.8 C (98.3 F) 04/01/2024 12:09 PM EST Respiratory Rate 19 04/01/2024 12:09 PM EST Oxygen Saturation 99% 04/01/2024 12:09 PM EST Inhaled Oxygen Concentration - - Weight 48.6 kg (107 lb 2.3 oz) 04/01/2024 12:09 PM EST Height 165.1 cm (5' 5 ) 04/01/2024 12:09 PM EST Body Mass Index 17.83 04/01/2024 12:09 PM EST Plan of Treatment Health Maintenance Due Date Last Done Comments HPV Vaccine (1 - 3-dose series) 10/11/2019 Hepatitis B (HepB) Vaccine (1 of 3 - 19+ 3-dose series) 10/11/2023 Tdap/Td Vaccine >11 yo (1 - Tdap) 10/11/2023 Annual SDOH Screening 05/12/2024 Depression Screening 05/12/2024 Influenza Vaccine (#1) 2025 3, 02/27/2016, 03/01/2014, Additional history exists Haemophilus Influenzae Type B (Hib) Vaccine Aged Out No longer eligible based on patient's age to complete this topic Hepatitis A (HepA) Vaccine Aged Out N o longer eligible based on patient's age to complete this topic Meningococcal ACWY Aged Out No longer eligible based on patient's age to complete this topic Pneumococcal Vaccines 6-49 yo Risk Aged Out No longer eligible based on patient's age to complete this topic Polio (IPV) Aged Out No longer eligi ble based on patient's age to complete this topic Rotavirus (RV) Vaccine Aged Out No lo nger eligible based on patient's age to complete this topic Insurance Care Teams Rouge Sifter And Miller Relationship Specialty Start Date End Date None, Physician PCP - General 04/01/24
--- OUTSIDE RECORDS SUMMARY | 2025-02-23 10:46 | XMS_ITS | Clinical Summary ---
Author Organization [facility] Address [address] [place] [id number] Care Team Providers Care District Ranger Name Role Phone Maurice Heck MD Primary Care Provider [phone] Source Comments [facility] is fully rolled out with thefollowing exceptions:[facility] Allergies No known active allergies Medications PULMICORT 0.5 mg/2mL nebulizer suspension Take 0.5 mg by inhalation 1 time daily. Active VERAMYST 27.5 MCG/SPRAY [place] 27.5 mcg in the nose at bedtime. 1 spray in each nostril Active CHILDRENS MULTIVITAMIN/IR ON PO Take 1 Tab by mouth every other day. 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 Overview (10/16/2007): S/p repair /05 Status post Jordan fundoplic ation (with gastrostomy tube placement) 10/16/2007 GERD (gastroesophageal reflux disease) 8 Family History Relation Name Status Comments Brother Alive Father Alive Mother Alive Sister Alive Social History Tobacco Use Types Packs/Day Years Used Date Smoking Tobacco: Never Assessed Comments Unknown Sex and Gender Information Value Date Recorded Sex Assigned at Not on file Legal Sex Female 5:20 AM EST Gender Identity Not on file Sexual Orientation Not on file Last Filed Vital Signs Vital Sign Reading Time Taken Comments Blood Pressure 79/54 10/20/2007 2:30 PM EDT Pulse 109 10/20/2007 2:30 PM EDT Temperature 35.2 C (95.4 F) 10/20/2007 2:30 PM EDT Respiratory Rate 24 10/20/2007 2:30 PM EDT Oxygen Saturation 97% 10/20/2007 2:30 PM EDT Inhaled Oxygen Concentration - - Weight 13.1 kg (28 lb 14.1 oz) 10/20/2007 2:30 P M EDT Height 92.8 cm (3' 0.54 ) 10/20/2007 2:30 PM EDT Body Mass Index 15.21 10/20/2007 2:30 PM EDT Plan of Treatment Health Maintenance Due Date Last Done Comments MMR IMMUNIZATION (1 of 1 - S tandard series) 2005 DTAP/Tdap/Td IMMUNIZATION (1 - Tdap) 10/11/2011 VARICELLA IMMUNIZATION (1 of 2 - 13+ 2-dose series) 2017 HPV IMMUNIZATION (1 - 3-dose series) 10/11/2019 MENINGOCOCCAL B VACCINE (1 o f 2 - Standard) 2020 HEPATITIS B IMMUNIZATION (1 of 3 - 19+ 3-dose series) 10/11/2023 AMB SEASONAL FLU VACCINE (#1) 01/10/2025 COVID-19 Vaccine (1 - 2023-2 5 season) 2025 HIB IMMUNIZATION Aged Out No longer e ligible based on patient's age to complete this topic IPV IMMUNIZATION Aged Out No longer e ligible based on patient's age to complete this topic MCV4 IMMUNIZATION Aged Out No longer eligible based on patient's age to complete this topic PNEUMOCOCCAL IMMUNIZATION Aged Out No longer eligible based on patient's age to complete this topic Respiratory Syncytial Virus (RSV) <20mo Aged Out No longer eligible b ased on patient's age to complete this topic Insurance Care Teams District Ranger Relationship Specialty Start Date End Date Maurice Heck MD [address] [place] [address] PCP - General 10/05/08
--- OUTSIDE RECORDS SUMMARY | 2025-02-23 10:46 | XMS_ITS | Encounter Summary ---
Author Organization [facility] Address [address] [place] [address] Care Team Providers Care Steamer Operator Name Role Phone Cherelle Hampton APRN Primary Care Provider [phone] Encounter Details Date Type Department Care Team (Latest Contact Info) Description 01/28/2025 Travel Social History Tobacco Use Types Packs/Day [...] documented as of this encounter Care Teams Steamer Operator Relationship Specialty Start Date End Date Cherelle Hampton APRN [address] [place] [id number] PCP - General Nurse Practitioner 10/24/23 documented as of this encounter
[2025-02-23 11:32] LABS: Hematocrit 40.5 % (37.0-47.0); Hemoglobin 12.8 g/dL (12.2-16.2); Immature Granulocytes % 0.2 %; Mean Corpuscular HGB Conc 31.6 g/dL (31.8-35.4); Mean Corpuscular Hemoglobin 28.3 pg (27.0-31.2); Mean Corpuscular Volume 89.4 fl (81-99); Nucleated Red Blood Cells % 0 %; Platelet Count 344 K/mm3 (142-424); Red Blood Count 4.53 M/mm3 (4.20-5.40); Red Cell Distribution Width-SD 54.1 fL; White Blood Count 5.2 K/mm3 (4.5-13.0)
[2025-02-23 11:47] LABS: Iron 53 ug/dL (37-170)
[2025-02-23 12:00] LABS: Total Iron Binding Capacity 433 ug/dL (265-497)
[2025-02-23 12:24] LABS: Ferritin 5.68 ng/ml (6.24-137)
== END 2025-02-23 23:59 | disposition home or self-care (01) ==
LOC: LAB 10:41
PROVIDERS: PCP Nurse Practitioner Family; Visit Provider Nurse Practitioner Family
DX: D50.9 Iron deficiency anemia, unspecified (principal)
CPT/HCPCS: 36415; 82728; 83540; 83550; 85025